=== PATIENT | male | born 1980 | race Caucasian/White ===

== ENCOUNTER 2018-05-27 03:28 | Emergency (ER) | payer OTHER ==
[2018-05-27 03:36] VITALS: BP 146/89
[2018-05-27] MEDS ORDERED: HYDROcod/ACETAM 5/325 MG TABLET PO STA (03:58)
[2018-05-27] MEDS ORDERED: AMOX/CLAV 875 MG/125 MG TABLET PO STA (03:58)
--- NOTE | 2018-05-27 04:02 | ED Physician Documentation ---
History of Present Illness - Stated complaint Stated Complaint: FACIAL PX - Chief complaint Chief Complaint: Heent - Additonal information Additional information: 38-year-old male presents the emergency department with complaints of dental pa in for the past several days. The patient reports pain in his right lower jaw. No facial swelling. No tongue swelling or difficulty swallowing. No attempts at symptom management this evening. No other associated symptoms. Review of Systems Constitutional: denies: Fever Eyes: denies: Discharge Ears: denies: Ear pain, Tinnitus/ringing Nose: denies: Rhinorrhea / runny nose Throat: reports: Dental pain / toothache Cardiac: denies: Palpitations Musculoskeletal: denies: Neck pain PD PAST MEDICAL HISTORY - Past Medical History Past Medical History: Yes Psych: Post traumatic stress disorder Musculoskeletal: Chronic back pain - Past Surgical History Past Surgical History: Yes - Present Medications Home Medications: Ambulatory Orders Medication Instructions Recorded Confirmed Amoxicillin 875 mg PO BID #20 tablet 05/27/18 - Allergies Allergies/Adverse Reactions: Allergies Allergy/AdvReac Type Severity Reaction Status Date / Time clindamycin Allergy Hallucinati Verified 05/27/18 03:37 ons NSAIDS (Non-Steroidal Allergy Emesis Verified 05/27/18 03:37 Anti-Inflamma - Social History Does the pt smoke?: Yes Smoking Status: Current every day smoker Does the pt drink ETOH?: Yes Does the pt have substance abuse?: No Substance Use and Type: Marijuana - Immunizations Immunizations are current?: Yes - POLST Patient has POLST: No PD ED PE NORMAL - General General: Alert and oriented X 3, No acute distress - HEENT HEENT: Atraumatic, PERRL - Cardiac Cardiac: RRR - Respiratory Respiratory: No respiratory distress - Extremities Extremities: No deformity - Neuro Neuro: Alert and oriented X 3, Normal speech - Psych Psych: Normal affect PD ED PE EXPANDED - HEENT HEENT: Dental decay (The patient has significant dental decay throughout his upper and lower teeth, the right lower jaw has no abscess. The patient is tender in the tooth, there is gingivitis. The tongue is within normal limits, the floor the mouth is moist and soft. The posterior pharynx is within normal limits. The uvula is midline and nonedematous). No: Dentition normal, Dental abscess Results - Vitals Vitals: Vital Signs - 24 hr 11/08/18 03:31 Temperature 36.2 C L Heart Rate 84 Respiratory 18 Rate Blood Pressure 146/89 H O2 Saturation 95 Oxygen O2 Source Room air PD MEDICAL DECISION MAKING - ED course ED course: The patient will be treated for a dental infection and appears appropriate for ongoing outpatient management. I recommended that the patient should follow-up with dental for further management of his pain. The patient understands and agrees. I discussed warning signs and recommended returning to the emergency department for any worsening or any concerns. Departure - Departure Disposition: 01 Home, Self Care Clinical Impression: Pain, dental Condition: Good Instructions: ED Tooth Pain Prescriptions: Amoxicillin 875 mg PO BID #20 tablet Comments: Please follow-up with a dentist this week for further management of your dental pain. Please return to the emergency department for worsening symptoms or any concerns.
== END 2018-05-27 04:11 | disposition home or self-care (01) ==
LOC: ED 03:28
DX: K04.7 Periapical abscess without sinus (principal); K02.9 Dental caries, unspecified; K05.10 Chronic gingivitis, plaque induced; F17.200 Nicotine dependence, unspecified, uncomplicated
CPT/HCPCS: 99283; A9270